=== PATIENT | female | born 2005 | race American Indian/Alaskan Native ===

== ENCOUNTER 2025-01-22 18:01 | Emergency (ER) | payer MEDICAID, OTHER ==
[2025-01-22] MEDS ORDERED: Sodium Chloride 0.9% 10 ML Syringe FLUSH PRN (18:14)
[2025-01-22] MEDS ORDERED: Sodium Chloride 0.9% 1,000 ML IV ONE (18:26)
[2025-01-22 18:33] LABS: BASOPHILS PERCENT AUTO 0.7 % (0.0-1.0); EOSINOPHILS PERCENT AUTO 1.7 % (1.0-3.0); HEMATOCRIT 37.9 % (37.0-47.0); HEMOGLOBIN 12.3 g/dL (12.0-16.0); LYMPHOCYTES PERCENT AUTO 48.7 % (20.5-50.1); MEAN CORPUSCULAR HEMOGLOBIN 23.5 pg (27.0-34.0); MEAN CORPUSCULAR HGB CONC 32.5 g/dL (33.0-35.0); MEAN CORPUSCULAR VOLUME 72.3 fL (80-100); MONOCYTES PERCENT AUTO 7.6 % (2-8); NEUTROPHILS PERCENT AUTO 41.3 % (42.2-75.2); PLATELET COUNT,PLT 336 10^3/uL (150-450); RED BLOOD CELL COUNT 5.24 10^6/uL (4.2-5.4); WHITE BLOOD CELL COUNT,WBC 10.6 10^3/uL (5.0-10.0)
[2025-01-22] MEDS: Lactated Ringers 1,000 ML IV ONE (18:44)
[2025-01-22 19:01] LABS: A/G RATIO 0.9; ALANINE AMINOTRANSFERASE,ALT 31 U/L (14-59); ALBUMIN 3.7 g/dL (3.4-5.0); ALKALINE PHOSPHATASE 142 U/L (46-116); ANION GAP 18.7 mEq/L (7-13); ASPARTATE AMNIOTRANSFERASE,AST 22 U/L (15-37); BILIRUBIN TOTAL 0.4 mg/dL (0.2-1.0); BLOOD UREA NITROGEN,BUN 12 mg/dL (7-18); BUN/CREATININE RATIO 12.1 (No establ ref range); CALCIUM 9.2 mg/dL (8.5-10.1); CARBON DIOXIDE,CO2 21 mmol/L (21-32); CHLORIDE,CL 105 mmol/L (98-107); CREATININE 0.99 mg/dL (0.55-1.02); EST CRCL DRUG DOSING (CG) 93.94 mL/min; GLUCOSE RANDOM 103 mg/dL (70-99); MAGNESIUM 2.1 mg/dL (1.8-2.4); POTASSIUM,K 3.7 mmol/L (3.5-5.1); PROTEIN TOTAL,TP 7.9 g/dL (6.4-8.2); SODIUM,NA 141 mmol/L (136-145); T4 FREE 0.92 ng/dL (0.76-1.46); TSH ULTRASENSITIVE 2.63 uIU/mL (0.36-3.74)
[2025-01-22 19:02] LABS: C-REACTIVE PROTEIN < 0.50 ng/dL (<=0.50); ESTIMATED GFR 83 mL/min (>=60)
[2025-01-22 19:16] LABS: BILIRUBIN,URINE NEGATIVE (NEGATIVE); COLOR,URINE YELLOW (YELLOW); GLUCOSE,URINE NEGATIVE (NEGATIVE); KETONES,URINE NEGATIVE (NEGATIVE); LEUKOCYTE ESTERASE,URINE SMALL (NEGATIVE); NITRITE,URINE NEGATIVE (NEGATIVE); OCCULT BLOOD,URINE NEGATIVE (NEGATIVE); PH,URINE 5.5 (5.0-9.0); PROTEIN,URINE NEGATIVE (NEGATIVE); UROBILINOGEN,URINE 0.2 mg/dL (0.2-1.0)
[2025-01-22 19:17] LABS: APPEARANCE,URINE SLIGHTLY CLOUDY (CLEAR)
[2025-01-22 19:19] LABS: BARBITURATES,URINE NEGATIVE (NEGATIVE); MDMA (ECSTASY), URINE NEGATIVE (NEGATIVE); METHADONE,URINE NEGATIVE (NEGATIVE); METHAMPHETAMINES,URINE NEGATIVE (NEGATIVE); OPIATES,URINE NEGATIVE (NEGATIVE); PHENCYCLIDINE,URINE NEGATIVE (NEGATIVE); TCA,URINE NEGATIVE (NEGATIVE)
[2025-01-22 19:20] LABS: AMPHETAMINES,URINE NEGATIVE (NEGATIVE); BENZODIAZEPINE,URINE NEGATIVE (NEGATIVE); OXYCODONE,URINE NEGATIVE (NEGATIVE)
[2025-01-22 19:25] LABS: RBC,URINE NOT SEEN /HPF (0-5)
[2025-01-22 19:26] LABS: BACTERIA,URINE MODERATE /HPF (0-FEW/HPF); EPITHELIAL CELLS,URINE FEW /HPF (NOT SEEN); MUCUS,URINE RARE /LPF (NOT SEEN)
[2025-01-22] MEDS: Ciprofloxacin 500 MG Tab PO ONE (19:39)
== END 2025-01-22 19:44 | disposition home or self-care (01) ==
LOC: DL.ED 18:01
DX: R56.9 Unspecified convulsions (principal); Z79.899 Other long term (current) drug therapy
CPT/HCPCS: 36415; 80053; 80305; 81001; 81025; 83605; 83735; 84439; 84443; 85025; 86140; 87086; 93005; 93010; 96360; 99284; 99285; A9270; J7120

== ENCOUNTER 2025-02-15 18:43 | Emergency (ER) | payer MEDICAID ==
[~2025-02-15 18:43] MED LIST: Sodium Chloride 0.9% 10 ML Syringe FLUSH PRN
[2025-02-15] MEDS: Sodium Chloride 0.9% 1,000 ML IV ONE (18:50)
[2025-02-15] MEDS: levETIRAcetam in NaCl (iso-os) 1,500 MG in Premix Bag 1 BAG IV ONE (18:50)
[2025-02-15 18:55] LABS: BASOPHILS PERCENT AUTO 0.6 % (0.0-1.0); EOSINOPHILS PERCENT AUTO 1.7 % (1.0-3.0); HEMATOCRIT 37.1 % (37.0-47.0); HEMOGLOBIN 11.6 g/dL (12.0-16.0); LYMPHOCYTES PERCENT AUTO 50.4 % (20.5-50.1); MEAN CORPUSCULAR HEMOGLOBIN 23.2 pg (27.0-34.0); MEAN CORPUSCULAR HGB CONC 31.3 g/dL (33.0-35.0); MEAN CORPUSCULAR VOLUME 74.2 fL (80-100); MONOCYTES PERCENT AUTO 8.4 % (2-8); NEUTROPHILS PERCENT AUTO 38.9 % (42.2-75.2); PLATELET COUNT,PLT 325 10^3/uL (150-450); WHITE BLOOD CELL COUNT,WBC 9.9 10^3/uL (5.0-10.0)
[2025-02-15 19:16] LABS: ALBUMIN 3.8 g/dL (3.4-5.0); ANION GAP 17.3 mEq/L (7-13); BILIRUBIN TOTAL 0.3 mg/dL (0.2-1.0); CALCIUM 8.6 mg/dL (8.5-10.1); EST CRCL DRUG DOSING (CG) 89.77 mL/min; MAGNESIUM 1.9 mg/dL (1.8-2.4); POTASSIUM,K 4.3 mmol/L (3.5-5.1); PROTEIN TOTAL,TP 7.6 g/dL (6.4-8.2)
== END 2025-02-15 19:48 | disposition home or self-care (01) ==
LOC: DL.ED 18:43
DX: R56.9 Unspecified convulsions (principal); Z79.899 Other long term (current) drug therapy
CPT/HCPCS: 36415; 70450; 80053; 83735; 85025; 96374; 99284; 99285; J1953; J7030

== ENCOUNTER 2025-04-09 21:13 | Emergency (ER) | payer MEDICAID ==
[2025-04-09 22:04] LABS: HEMOGLOBIN 12.6 g/dL (12.0-16.0); MEAN CORPUSCULAR HGB CONC 33.2 g/dL (33.0-35.0); MEAN CORPUSCULAR VOLUME 75.4 fL (80-100); RED BLOOD CELL COUNT 5.04 10^6/uL (4.2-5.4); WHITE BLOOD CELL COUNT,WBC 7.2 10^3/uL (5.0-10.0)
[2025-04-09 22:26] LABS: A/G RATIO 0.9; ALANINE AMINOTRANSFERASE,ALT 23 U/L (14-59); ALBUMIN 3.5 g/dL (3.4-5.0); ALKALINE PHOSPHATASE 137 U/L (46-116); ANION GAP 11.9 mEq/L (7-13); ASPARTATE AMNIOTRANSFERASE,AST 16 U/L (15-37); BILIRUBIN TOTAL 0.2 mg/dL (0.2-1.0); BLOOD UREA NITROGEN,BUN 13 mg/dL (7-18); BUN/CREATININE RATIO 13.5 (No establ ref range); CARBON DIOXIDE,CO2 27 mmol/L (21-32); CHLORIDE,CL 106 mmol/L (98-107); CREATININE 0.96 mg/dL (0.55-1.02); EST CRCL DRUG DOSING (CG) 92.72 mL/min; GLUCOSE RANDOM 134 mg/dL (70-99); HCG QUALITATIVE,SERUM NEGATIVE (NEGATIVE); MAGNESIUM 1.9 mg/dL (1.8-2.4); POTASSIUM,K 3.9 mmol/L (3.5-5.1); PROTEIN TOTAL,TP 7.6 g/dL (6.4-8.2); SODIUM,NA 141 mmol/L (136-145)
[2025-04-09 22:27] LABS: ESTIMATED GFR 86 mL/min (>=60)
== END 2025-04-09 22:50 | disposition home or self-care (01) ==
LOC: DL.ED 21:13
DX: G40.909 Epilepsy, unspecified, not intractable, without status epilepticus (principal); S06.0X0A Concussion without loss of consciousness, initial encounter; Z86.16 Personal history of COVID-19; W01.198A Fall on same level from slipping, tripping and stumbling with subsequent striking against other object, initial encounter
CPT/HCPCS: 36415; 70450; 80053; 80175; 83735; 84703; 85027; 99284

== ENCOUNTER 2025-04-15 11:07 | Emergency (ER) | payer MEDICAID ==
[2025-04-15 11:41] LABS: BASOPHILS PERCENT AUTO 0.8 % (0.0-1.0); EOSINOPHILS PERCENT AUTO 2.1 % (1.0-3.0); HEMATOCRIT 39.4 % (37.0-47.0); HEMOGLOBIN 13.3 g/dL (12.0-16.0); LYMPHOCYTES PERCENT AUTO 33.2 % (20.5-50.1); MEAN CORPUSCULAR HEMOGLOBIN 25.6 pg (27.0-34.0); MEAN CORPUSCULAR HGB CONC 33.8 g/dL (33.0-35.0); MEAN CORPUSCULAR VOLUME 75.8 fL (80-100); MONOCYTES PERCENT AUTO 5.5 % (2-8); NEUTROPHILS PERCENT AUTO 58.4 % (42.2-75.2); PLATELET COUNT,PLT 359 10^3/uL (150-450); WHITE BLOOD CELL COUNT,WBC 7.2 10^3/uL (5.0-10.0)
[2025-04-15] MEDS: Meclizine 12.5 MG Tab PO ONE (11:43)
[2025-04-15 12:02] LABS: ALBUMIN 4.1 g/dL (3.4-5.0); ANION GAP 15.1 mEq/L (7-13); BILIRUBIN TOTAL 0.4 mg/dL (0.2-1.0); BUN/CREATININE RATIO 10.6 (No establ ref range); CALCIUM 9.2 mg/dL (8.5-10.1); CREATININE 0.94 mg/dL (0.55-1.02); EST CRCL DRUG DOSING (CG) 94.7 mL/min; POTASSIUM,K 4.1 mmol/L (3.5-5.1); PROTEIN TOTAL,TP 8.2 g/dL (6.4-8.2)
== END 2025-04-15 12:11 | disposition home or self-care (01) ==
LOC: DL.ED 11:07
DX: R42 Dizziness and giddiness (principal); Z86.16 Personal history of COVID-19
CPT/HCPCS: 36415; 80053; 85025; 93005; 99284; A9270

== ENCOUNTER 2025-05-05 22:38 | Emergency (ER) | payer MEDICAID ==
[2025-05-05] MEDS: Take Home: Amoxicillin 500 MG, 6 Cap Pack PO ONE (23:28)
== END 2025-05-05 23:37 | disposition home or self-care (01) ==
LOC: DL.ED 22:38
DX: H69.93 Unspecified Eustachian tube disorder, bilateral (principal); H66.93 Otitis media, unspecified, bilateral; Z79.899 Other long term (current) drug therapy; Z86.16 Personal history of COVID-19
CPT/HCPCS: 87428-QW; 99283; A9270-GY

== ENCOUNTER 2025-11-04 07:08 | Emergency (ER) | payer MEDICAID ==
[2025-11-04 07:41] LABS: BASOPHILS PERCENT AUTO 0.7 % (0.0-1.0); EOSINOPHILS PERCENT AUTO 1.8 % (1.0-3.0); LYMPHOCYTES PERCENT AUTO 22.2 % (20.5-50.1); MONOCYTES PERCENT AUTO 7.2 % (2-8); NEUTROPHILS PERCENT AUTO 68.1 % (42.2-75.2); PLATELET COUNT,PLT 326 10^3/uL (150-450); RED BLOOD CELL COUNT 4.45 10^6/uL (4.2-5.4); WHITE BLOOD CELL COUNT,WBC 9.0 10^3/uL (5.0-10.0)
[2025-11-04 08:01] LABS: ALANINE AMINOTRANSFERASE,ALT 28 U/L (14-59); ASPARTATE AMNIOTRANSFERASE,AST 19 U/L (15-37); BILIRUBIN TOTAL 0.2 mg/dL (0.2-1.0); BLOOD UREA NITROGEN,BUN 11 mg/dL (7-18); CARBON DIOXIDE,CO2 27 mmol/L (21-32); CHLORIDE,CL 107 mmol/L (98-107); CREATININE 0.90 mg/dL (0.55-1.02); EST CRCL DRUG DOSING (CG) 106.03 mL/min; GLUCOSE RANDOM 99 mg/dL (70-99); POTASSIUM,K 4.4 mmol/L (3.5-5.1); PROTEIN TOTAL,TP 6.7 g/dL (6.4-8.2); SODIUM,NA 141 mmol/L (136-145)
[2025-11-04 08:02] LABS: A/G RATIO 0.97; ESTIMATED GFR 93 mL/min (>=60)
[2025-11-04 08:04] LABS: LACTIC ACID 1.7 mmol/L (0.4-2.0)
[2025-11-04 08:07] LABS: APPEARANCE,URINE CLOUDY (CLEAR); GLUCOSE,URINE NEGATIVE (NEGATIVE); OCCULT BLOOD,URINE MODERATE (NEGATIVE)
[2025-11-04 08:10] LABS: EPITHELIAL CELLS,URINE MODERATE /HPF (NOT SEEN)
== END 2025-11-04 10:12 | disposition home or self-care (01) ==
LOC: DL.ED 07:08
DX: N92.0 Excessive and frequent menstruation with regular cycle (principal); R11.2 Nausea with vomiting, unspecified; R19.7 Diarrhea, unspecified; Z86.16 Personal history of COVID-19; Z79.899 Other long term (current) drug therapy
CPT/HCPCS: 36415; 76856; 80053; 81001; 81025; 83605; 83690; 84145; 85025; 96360; 99284; 99285; A9270; J7030